=== PATIENT | female | born 1990 ===

== ENCOUNTER 2025-06-29 12:43 | Emergency (ER) | payer OTHER, SELFPAY ==
--- OUTSIDE RECORDS SUMMARY | 2012-06-24 04:30 | XMS_ITS | Continuity of Care Document ---
Author Organization [facility] Address [address] [facility] [address] [place] [address] Phone Care Team Providers Care Mirror Maker Name Role Phone Latoyailsamelissa LATRICIA Carmine Unavailable Unavailable Advance Directives Directive Yes / No Effective Date File Name No Information Encounters Encounter Description Practice Location Reason(s) For Visit Diagnoses Date Provider Providers Copied on Encounter [facility], [address] [facility] [address], [place], [address], [place] tel:[phone] No Information Kandice Lou. [facility] [place], [place], [id number], [place]. tel:[phone] Referring Provider: Jenn Calzada MD, [address], [address] . tel:[phone] Family History Family Member Type Diagnosis Age At Onset No Information Payers Payer name Insurance type Covered libertarian ID Authoriza tion(s) Medicaid [id number] Social History Type Description Quantity Date Captured Comments Sex Female Smoking Status No Information Chief Complaint And Reason For Visit No Information Reason For Referral Reason For Referral No Information History Of Present Illness Encounter Date Complaint History Of Prese nt Illness No Information Functional Status Date Functional Assessmen t No Information Instructions Date Instruction Additional Infor mation No Information Assessments Type Assessment Date No Information Patient Care Teams Name Effective Dates (start - stop) Status Members No Information
--- NOTE | ~2025-06-29 | CT_ITS ---
CLINICAL HISTORY: right sided headache, dizziness CT head without contrast Comparison: None provided Findings: No intra-axial mass, midline shift, hydrocephalus, or acute hemorrhage. No significant atrophy-like change or white matter disease. Mild mucosal thickening in the maxillary sinuses. The orbits are unremarkable. There is no acute fracture. IMPRESSION: 1. No acute intracranial findings. This document has been electronically signed by: Jose Donis MD on 06/29/2025 19:22:01
--- NOTE | ~2025-06-29 | CT_ITS ---
CLINICAL HISTORY: abdominal pain, nausea CT abdomen and pelvis with contrast Comparison: None provided Findings: No consolidation or effusion. Cholecystectomy. No biliary duct dilatation. Calcified granuloma in the right hepatic lobe. Liver is otherwise within limits. Spleen, pancreas, and adrenal glands are within normal limits. No hydronephrosis. Symmetric contrast enhancement of the kidneys. Nonobstructing calculus in the upper pole of the right kidney. No bowel obstruction, pneumoperitoneum, or pneumatosis. Corpus luteum in the left ovary. Uterus is within normal limits. Appendectomy. Urinary bladder is underdistended. Small amount of free fluid in the anterior pelvis. Trace free fluid in the posterior cul-de-sac. No acute fracture. IMPRESSION: Small amount of free fluid in the anterior pelvis, of uncertain etiology. No other acute findings. This document has been electronically signed by: Jose Donis MD on 06/29/2025 19:19:29
[2025-06-29 12:55] VITALS: BP 134/74; PULSE 82; RESP 16; TEMP 36.6; O2SAT 98; BMI 25.5
--- NOTE | 2025-06-29 12:59 | ED_ITS ---
HPI - General Adult General Chief complaint: Abdominal Pain Stated complaint: abd pain, headache Time Seen by Provider: 06/29/25 16:06 Source: patient Mode of arrival: ambulatory Limitations: no limitations History of Present Illness ED Provider: Alberta Tatum PA-C HPI narrative: Patient is a 34 year old assigned female at with a history of appendectomy and cholecystectomy presenting to the emergency department today with abdominal pain, nausea, vomiting, headache, and pain with urination. Patient states that over the last day she has had abdominal pain, nausea, vomiting, headache, and pain with urination. Patient denies any other complaints at this time. Onset (ago): day(s) (1) Related Data Allergies Allergy/AdvReac Type Severity Reaction Status Date / Time No Known Allergies Allergy Verified 06/29/25 12:56 Review of Systems 2 Constitutional: Constitutional: Reports as per HPI Eyes: Eyes: Reports as per HPI ENT: Reports as per HPI Cardiovascular: Cardiovascular: Reports as per HPI Respiratory: Respiratory: Reports as per HPI Gastrointestinal: Gastrointestinal: Reports as per HPI Genitourinary: Genitourinary: Reports as per HPI Musculoskeletal: Musculoskeletal: Reports as per HPI Integumentary/Breasts: Skin/Breast: Reports as per HPI Neurologic: Reports as per HPI Psychiatric: Psychiatric: Reports as per HPI Endocrine: Endocrine: Reports as per HPI Hematologic/Lymphatic: Hematologic/Lymphatic: Reports as per HPI Allergic/Immunologic: Allergic/Immunologic: Reports as per HPI [facility] Past Medical History Attestation statement: The following information was validated with the patient. Source: old records reviewed and nursing notes reviewed Physical Exam ED Vital Signs: Vital Signs - 24 hr 06/29/25 12:55 06/29/25 15:14 06/29/25 20:03 Temperature 97.8 F 97.7 F Pulse Rate 82 84 72 Respiratory Rate 16 18 20 Blood Pressure 134/74 109/58 L 107/73 Pulse Oximetry 98 99 97 Oxygen Delivery Method Room Air Room Air BMI result Body Mass Index 25.5 Const General: cooperative, no acute distress, alert and awake Nutritional Appearance: well nourished Orientation/consciousness: patient oriented x3 HENMT Head: Yes normal to inspection and Yes atraumatic Ears: hearing grossly normal bilaterally and external ears normal General nose exam: Normal external nose present, no nasal discharge noted and no epistaxis Face and sinus: Yes normal facial exam, No abrasion and No laceration Mouth: Normal oral and palatal mucosa present, no drooling and no muffled voice Eyes General: appearance normal, both eyes and all related structures Periorbital: periorbital findings normal Eyelids: Yes eyelids normal Conjunctivae: conjunctivae normal Pupils: Equal, round and reactive pupils present EOM: EOMs intact bilaterally Neck Neck: Yes normal visual inspection and Yes full ROM Resp Effort & Inspection: normal respiratory effort and able to speak in complete sentences GI Palpation (GI): Soft to palpation, not firm, nontender, no guarding and not rigid Neuro General: patient oriented x3, moves all extremities and CN's II-XI intact bilaterally Cranial nerves: Yes Equal, round and reactive pupils present Cognition (Neuro): normal cognition Extrem General: Yes normal to inspection, Yes full ROM and Yes capillary refill normal Psych Appearance: grossly normal Mental Status: mental status grossly normal Affect: normal affect Attitude: cooperative Thought process: Normal thought process present Thought content: Normal thought content present Insight: Good insight present (Psych) Course Course Course Narrative: RME: 34-year-old female presents to ED for generalized abdominal pain nausea vomiting with headache. Patient has history of cholecystectomy appendectomy. Labs ordered Medications Administered Discontinued Medications Generic Name Dose Route Start Last Admin Trade Name Freq PRN Reason Stop Dose Admin Sodium Chloride 1,000 mls @ 999 mls/hr 06/29/25 16:30 06/29/25 18:06 Ns IV 06/29/25 17:30 Infused .Q1H1M FRANNIE Infusion Iohexol 100 ml 06/29/25 18:05 06/29/25 18:05 Iohexol 350 Mg/Ml 100 Ml Infus..Btl IV 06/29/25 18:06 85 ml ONCE ONE Administration Ketorolac Tromethamine 15 mg 06/29/25 16:26 06/29/25 17:05 Ketorolac Tromethamine 15 Mg/Ml Vial IVPUSH 06/29/25 16:27 15 mg ONCE ONE Administration Morphine Sulfate 4 mg 06/29/25 16:26 06/29/25 17:06 Morphine Sulfate 2 Mg/Ml Cartridge IVPUSH 06/29/25 16:27 4 mg ONCE ONE Administration Protocol Ondansetron HCl 4 mg 06/29/25 16:27 06/29/25 17:05 Ondansetron Hcl 4 Mg/2 Ml Vial IVPUSH 06/29/25 16:28 4 mg ONCE ONE Administration Medical Decision Making Medical Decision Making [facility] Narrative: Patient is a 34 year old assigned female at with a history of appendectomy and cholecystectomy presenting to the emergency department today with abdominal pain, nausea, vomiting, headache, and pain with urination. Patient's physical exam was as noted in the physical exam portion of this note. Patient's blood work was unremarkable. Patient's urine showed trace leuks with 0-5 WBC, and trace bacteria. Not convincing for an acute UTI. Will await culture before treating. Patient's CT abd/pelvis showed no acute process but did show some trace free fluid in the pelvis. I suspect the patient had a small ovarian cyst that ruptured, causing the trace pelvic fluid. I explained my physical exam findings as well as all test results to the patient. I answered all questions asked by the patient. Patient received IV morphine, Zofran, and Toradol which, upon re-evaluation, she stated it helped her symptoms significantly. I stressed the importance of the patient taking her medication as directed (either prescribed or as the over the counter packaging recommends). I stressed the importance of the patient following up with her primary care provider. I stressed the importance of the patient returning to the emergency department immediately if her symptoms were to worsen or if she were to develop any dizziness, shortness of breath, difficulty breathing, chest pain, blurry vision, loss of vision, nausea, vomiting, abdominal pain, fever, chills, back pain, or any other complaints. Patient verbalized agreement and understanding with this treatment plan and discharge. Differential Diagnosis Differential Diagnoses: The differential diagnosis associated with the presentation includes Abdominal pain Ovarian cyst Admission/Observation Consideration of admission/observation: Escalation of care including admission/observation considered Patient would have been admitted to the hospital had her work up had any findings where hospital admission was appropriate and her clinical presentation warranted hospital admission. Lab Data [facility] Lab Attestation statement: I reviewed the patient's lab results. My interpretation of these results are in the [facility] Rationale portion of this note. 06/29/25 13:07 06/29/25 13:07 Labs: Lab Results 06/29/25 06/29/25 06/29/25 Range/Units 13:07 17:10 17:51 WBC 6.0 (4.8-10.8) X10*3/uL RBC 4.29 (4.20-5.50) X10*6/uL Hgb 12.3 (12.0-16.0) g/dl Hct 37.3 (37.0-47.0) % MCV 86.9 (80.0-98.0) fL MCH 28.7 (27.0-33.0) pg MCHC 33.0 (31.0-35.0) g/dl RDW 13.2 (11.0-16.0) % Plt Count 276 (160-400) X10*3/uL MPV 9.3 L (9.4-12.3) fL Immature Gran % (Auto) 0.3 (0.0-0.4) % Neut % (Auto) 66.1 (45-73) % Lymph % (Auto) 26.6 (20-40) % [place] % (Auto) 6.2 (2-11) % Eos % (Auto) 0.3 (0-4) % Baso % (Auto) 0.5 (0-2) % Lymph # (Auto) 1.6 (1.2-4.9) X10*3/uL [place] # (Auto) 0.4 (0.1-1.2) X10*3/uL Eos # (Auto) 0.0 (0.0-0.4) X10*3/uL Baso # (Auto) 0.0 (0.0-0.2) X10*3/uL Abs Immat Gran (auto) 0.02 (0.00-0.03) X10*3/uL Absolute Neuts (auto) 4.0 (2.0-8.3) x10*3/uL Absolute Nucleated RBC 0.000 (0.0-0.012) X10*3/uL Nucleated RBC % (auto) 0.0 (0.0-0.2) /100WBC Sodium 141 (135-145) mmol/L Potassium 3.7 (3.3-5.1) mmol/L Chloride 109 H (96-108) mmol/L Carbon Dioxide 27 (22-29) mmol/L Anion Gap 9 L (12-20) BUN 10 (9-16) mg/dL Creatinine 0.62 (0.5-1.4) mg/dL Estim Creat Clear Calc 122.0 Estimated GFR > 60 Random Glucose 80 (60-115) mg/dL Calcium 9.1 (8.4-10.2) mg/dL Total Bilirubin 0.4 (0.0-1.0) mg/dL AST 19 (5-31) U/L ALT 15 (0-31) U/L Alkaline Phosphatase 75 (39-117) U/L Total Protein 7.2 (6.5-8.0) g/dL Albumin 4.3 (3.5-5.0) g/dL Lipase 18 (8-78) U/L Beta HCG, Quant < 2 mIU/mL Urine Color Yellow Urine Appearance Clear Urine pH 6.5 (5.0-9.0) Ur Specific [place] 1.010 (1.005-1.025) Urine Protein Negative (Neg-Trace) mg/dL Urine Glucose (UA) Negative (Negative) mg/dL Urine Ketones Negative (Negative) mg/dL Urine Blood Negative (Negative) Urine Nitrite Negative (Negative) Ur Leukocyte Esterase Trace H (Negative) Urine RBC 0-2 (0-2) /HPF Urine WBC 0-5 (0-5) /HPF Ur Squamous Epith Cells 3-5 (0-2) /HPF Urine Bacteria Trace (None Seen) Hyaline Casts 0-2 (0-2) /LPF Chlam trachomat DNA PCR NOT DETECTED (Not Detect.) COVID-19 (AZEEM) Negative (Negative) COVID-19 Clin Com See Note Influenza Type A (CARLI) Negative (Negative) Influenza Type B (CARLI) Negative (Negative) Influenza A & B Note See Note N.gonorrhoeae DNA (PCR) NOT DETECTED (Not Detect.) S. pyogenes GrpA CARLI Negative (Negative) T. vaginalis (PCR) NOT DETECTED (Not Detect) Bact vaginosis (PCR) NEGATIVE (Negative) C. krusei/glabrata (PCR) DETECTED A (Not Detect) Keren group (PCR) NOT DETECTED (Not Detect) Independent Interpretation I performed an independent interpretation of an: CT Scan Interpretation: My interpretation is in agreement with the radiologist's impression of this imaging study. L Report Number: [id number]: Total DLP = 0.00 mGy-cm Reason for Exam: right sided headache, dizziness CLINICAL HISTORY: right sided headache, dizziness CT head without contrast Comparison: None provided Findings: No intra-axial mass, midline shift, hydrocephalus, or acute hemorrhage. No significant atrophy-like change or white matter disease. Mild mucosal thickening in the maxillary sinuses. The orbits are unremarkable. There is no acute fracture. IMPRESSION: 1. No acute intracranial findings. This document has been electronically signed by: Jose Donis MD on 06/29/2025 19:22:01 Dictated By: Jose Donis MD Signed By: Electronically signed by Jose Donis MD 06/29/251921 Reason for Exam: abdominal pain, nausea CLINICAL HISTORY: abdominal pain, nausea CT abdomen and pelvis with contrast Comparison: None provided Findings: No consolidation or effusion. Cholecystectomy. No biliary duct dilatation. Calcified granuloma in the right hepatic lobe. Liver is otherwise within limits. Spleen, pancreas, and adrenal glands are within normal limits. No hydronephrosis. Symmetric contrast enhancement of the kidneys. Nonobstructing calculus in the upper pole of the right kidney. No bowel obstruction, pneumoperitoneum, or pneumatosis. Corpus luteum in the left ovary. Uterus is within normal limits. Appendectomy. Urinary bladder is underdistended. Small amount of free fluid in the anterior pelvis. Trace free fluid in the posterior cul-de-sac. No acute fracture. IMPRESSION: Small amount of free fluid in the anterior pelvis, of uncertain etiology. No other acute findings. This document has been electronically signed by: Jose Donis MD on 06/29/2025 19:19:29 Dictated By: Jose Donis MD Signed By: Electronically signed by Jose Donis MD 06/29/251919 Radiology Impression Discussion of test interpretation with radiology: I have reviewed the radiologist's reading. Critical Care Time Critical Care Time Critical Care Time: Yes Total Critical Care Time: 36 Attestation: I spent 36 minutes of Critical Care Time with this patient. This does not include time spent on separately reported billable procedures. Discharge Plan Discharge Clinical Impression: Abdominal pain, Headache Patient Disposition: Home, Self-Care Instructions: Abdominal Pain (ED) Additional Instructions: Your work up today was reassuring there is no EMERGENT cause for your symptoms. Tus an?ipa de hoy me confirmaron que no hay sintia causa urgente de tus s?ntomas. Your CT scan of the abdomen/pelvis showed trace (small amount) of free fluid which I suspect is from a small ruptured ovarian cyst and that is why you were having pain. Tu tomograf?a computarizada de abdomen y pelvis mostr? sintia barbara?a cantidad de l?quido cole, que sospecho proviene de un barbara?o quiste ov?rico roto, y anu es la neftali?n por la que ten?as dolor. IF you are prescribed home medications and/or you are taking over the counter medications at home - it is very important you continue to do so as prescribed / directed unless told otherwise. SI le recetan medicamentos y/o est? tomando medicamentos de venta cole, es muy importante que contin?e haci?ndolo seg?n lo recetado/indicado a menos que le indiquen lo contrario. Follow up with your primary care provider. Return to the emergency department immediately if your symptoms worsen or if you develop any dizziness, shortness of breath, difficulty breathing, chest pain, blurry vision, loss of vision, nausea, vomiting, abdominal pain, fever, chills, back pain, or any other complaints. Terrie?seguimiento?con monson m?dico de atenci?n primaria. Acuda inmediatamente al servicio de urgencias si jeanette s?ntomas empeoran o si presenta falta de aliento, dificultad para respirar, dolor tor?cico, mareos, aturdimiento, dolor de espalda, dolor abdominal, fiebre, escalofr?os o cualquier otro s?ntoma. If you do not have a primary care provider - call any of the below numbers to establish and follow up with a primary care provider. Si no tiene un proveedor de atenci?n primaria, llame a cualquiera de los n?meros que aparecen a continuaci?n para establecer y hacer seguimiento con un proveedor de atenci?n primaria. [facility] Primary Care ([place]) [phone] [place] [address], [address] [facility] Primary Care ([address] [place]) [phone] [place] [address], [address] [facility], [address] [facility] Primary Care ([address] [place]) [phone] [place] [address], [address] [facility], [address] [facility] Primary Care ([place]) [phone] [place] [address] [address] [facility], [address] [facility] Family Medicine [phone] [place] [address], [address] Please see the information below about our Patient Portal. If you are not yet enrolled in the [facility] Patient Portal, you will receive an enrollment email invitation following your visit to any [facility] setting. You may also self-enroll in the Patient Portal by visiting our website: [email or web address] The following information is required to access the Patient Portal: - Your [facility] Medical Record Number - Your personal home email address (must match what is in your electronic medical record, Registration staff can assist with this) - Name - Date of Capabilities of the Patient Portal: - Message some providers - View upcoming appointments - Access your health summary, medical history, and visit history - View current conditions and allergies - View procedure and lab results - View your medications, including guidelines, side effects, and precautions - Complete pre-appointment questionnaires requested by your provider - Ready summary reports of your office visits and procedures To access the Patient Portal Mobile Toro, follow these directions: - Search RevertealPovio in the Toro Store or SeptRx Store - Download the Toro - Search for [facility] - Enter your login/password Portal del paciente Si usted no esta inscrito en el portal de pacientes de [facility] y [facility], recibira sintia invitacion de inscripcion despues de monson visita al [facility] o al [facility] via correo electronico. Tambien puede inscribirse voluntariamente en el portal de pacientes visitando nuestra pagina web: [email or web address] La siguiente informacion sera requerida para acceder al portal: - Monson devin de historia medica de [facility] - Monson direccion de correo electronico personal - Nombre - Fecha de nacimiento Capacidades: Las siguientes capacidades estan disponibles en el portal de pacientes: - Enviar mensajes a algunos doctores - Verificar proximas citas - Acceso a monson historial de dylon, registro medico e historial de visitas - Luisa las condiciones actuales y alergias luisa procedimientos y resultados del laboratorio - Luisa jeanette medicamentos, incluyendo las pautas - Efectos secundarios y precauciones - Completar o llenar formularios / cuestionarios de - Citas solicitadas por monson doctor - Leer los resumenes de reportes medicos de jeanette visitas y procedimientos Kedar acceder a la aplicacion movil: - Busque RevertealPovio en la Toro Store o SeptRx Store - Descargue la aplicacion - Busque [facility] - Ingrese monson nombre de usuario / Contrasena Stand Alone Forms: Work/School Release Interventions: ED Discharge Assessment Last Done: 06/29/25 20:03 Discharge Date/Time: 06/29/25 20:04 Print Language: Greek
[2025-06-29 13:13] LABS: MANUAL DIFF FLAG NO
[2025-06-29 13:14] LABS: Hematocrit 37.3 % (37.0-47.0); Hemoglobin 12.3 g/dl (12.0-16.0); Imm Gran Abs Auto 0.02 X10*3/uL (0.00-0.03); Imm Gran Pct Auto 0.3 % (0.0-0.4); Lymphocytes Absolute Auto 1.6 X10*3/uL (1.2-4.9); Mean Corpuscular HGB Conc 33.0 g/dl (31.0-35.0); Mean Corpuscular Hemoglobin 28.7 pg (27.0-33.0); Mean Corpuscular Volume 86.9 fL (80.0-98.0); NRBC Abs Auto 0.000 X10*3/uL (0.0-0.012); NRBC Pct Auto 0.0 /100WBC (0.0-0.2); Platelet Count 276 X10*3/uL (160-400); Red Blood Count 4.29 X10*6/uL (4.20-5.50); White Blood Count 6.0 X10*3/uL (4.8-10.8)
[2025-06-29 13:27] LABS: Alanine Aminotransferase 15 U/L (0-31); Albumin Level 4.3 g/dL (3.5-5.0); Alkaline Phosphatase 75 U/L (39-117); Anion Gap 9 (12-20); Aspartate Amino Transferase 19 U/L (5-31); Blood Urea Nitrogen 10 mg/dL (9-16); Calcium 9.1 mg/dL (8.4-10.2); Carbon Dioxide 27 mmol/L (22-29); Chloride 109 mmol/L (96-108); Creatinine Clr Calc Pharmacy 122.0; Estimated Glomerular Filt Rate > 60; Lipase 18 U/L (8-78); Potassium 3.7 mmol/L (3.3-5.1); Sodium 141 mmol/L (135-145); Total Protein 7.2 g/dL (6.5-8.0)
[2025-06-29 13:44] LABS: IDNOW Serial# 152EDE1D; IDNOW Serial# 16C4AD1C; Influenza B2 Negative (Negative)
[2025-06-29 13:45] LABS: COVID-19 Test Negative (Negative)
[2025-06-29 13:52] LABS: IDNOW Serial# 152EDE1D; Strep A Nucleic Acid Negative (Negative)
[2025-06-29 14:14] LABS: Appearance Urine Clear; Glucose Urine UA Negative (Negative); PH 6.5 (5.0-9.0); Specific Gravity - Urine 1.010 (1.005-1.025); UMIC TRIGGER UACC YES
[2025-06-29 15:14] VITALS: BP 109/58; PULSE 84; RESP 18; O2SAT 99
[2025-06-29] MEDS: iohexoL 350 MG/ML 100 ML INFUS..BTL IV (18:05)
--- OUTSIDE RECORDS SUMMARY | 2025-06-29 19:23 | XMS_ITS ---
Author Name [facility] Organization Unknown Care Team Organization Name Specialty Phone Email Start Date End Da te [facility] Deja Rojas Primary [facility] 11/19/2022 05/02/2024 [facility] Leilani Sargent Primary Care 07/22/2022
--- OUTSIDE RECORDS SUMMARY | 2025-06-29 19:23 | XMS_ITS | Clinical Summary ---
Author Organization [facility] Address [address] [place] [address] Phone Care Team Providers Care Shake Sawyer Name Role Phone Deja Pryor MD Primary Care Prov ider Allergies No known active allergies Medications albuterol HFA (PROAIR HFA ; PROVENTIL HFA ; VENTOLIN HFA) 90 mcg/actuation inhaler Inhale 2 Puffs into the lungs every 4 hours as needed for Cough or Wheezing. 08/25/2023 Active zolpidem (AMBIEN) 5 mg tablet TAKE 1 TABLET BY MOUTH EVERY NIGHT AT BEDTIME DIRECTED FOR SLEEP AT TEN PM Active ibuprofen (ADVIL,MOTRIN) 600 mg tablet Take 1 tablet (600 mg total) by mouth 3 (three) times a day. 08/04/2024 Active Active Problems Problem Noted Date Diagnosed Date Migraine without aura and wi th status migrainosus, not intractable 06/10/2019 Gastroesophageal reflux disease 10/01/2016 Encounters Date Type Department Care Team Description 04/07/2025 8:21 PM EDT - 04/07/2025 9:53 PM EDT Emergency [facility] Emergency [address] [place] [address] Osito Kevin MD Pain and swelling of left lower leg (Primary Dx) Discharge Disposition: Home or Self Care from Last 3 Months Immunizations Immunization Administration Dates Next Due Influenza, Unspecified 05/15/2016 Moderna SARS-CoV-2 COVID-19, mRNA, LNP-S, preservative free 09/16/2021,03/14/2021,02/14/2021 PPD Test 01/25/2019 Tdap Tetanus diptheria acell ular pertussis (Boostrix; Adacel) 7yo and older 04/30/2017 Surgical History Surgery Date Site/Laterality Comments CHOLECYSTECTOMY PROCEDURE: HISTORICAL CHOLECYSTECTOMY APPENDECTOMY PROCEDURE: HISTORICAL APPENDECTOMY TUBAL LIGATION 2012 PROCEDURE: HISTORICAL TUBAL LIGATION Medical History Medical History Date Comments Gastroesophageal reflux disease 10/01/2016 DX:Gastroesophageal reflux disease Migraine without aura and wi th status migrainosus, not intractable 06/10/2019 DX:Migraine without aura and with status migrainosus, not intractable Family History Medical History Relation Name Comments Breast cancer Aunt maternal mastectomy No Known Problems Brother x[address] No Known Problems Father Colon cancer Father's side Hypertension Mother No Known Problems Sister x5 No Known Problems Son 1 No Known Problems Son 2 Relation Name Status Comments Aunt maternal Alive Brother x4 Alive Father Alive Father's side Mother Alive Sister x5 Alive Son 1 Alive Son 2 Alive Social History Tobacco Use Types Packs/Day Years Used Date Smoking Tobacco: Never Smokeless Tobacco: Never Alcohol Use Standard Drinks/Week Comments Yes 0 (1 standard drink = 0.6 oz pur e alcohol) Comments Unknown Sex and Gender Information Value Date Recorded Sex Assigned at Not on file Legal Sex Female 3:19 AM EST Gender Identity Not on file Sexual Orientation Not on file Obstetrics History Para Term AB IAB SAB Ectopic Multiple Livin g Live Births 2 2 2 2 2 Date Outcome GA Total Labor Labor/2nd/3rd Weight Sex Type Anes PTL Luzma A1 A5 Name Clin 2009 Term M Vag-S pont Living 2011 Term M Vag-S pont Living Last Filed Vital Signs Vital Sign Reading Time Taken Comments Blood Pressure 108/87 04/07/2025 7:40 PM EDT Pulse 88 04/07/2025 7:40 PM EDT Temperature 36.8 C (98.2 F) 04/07/2025 7:40 PM EDT Respiratory Rate 18 04/07/2025 7:40 PM EDT Oxygen Saturation 99% 04/07/2025 7:40 PM EDT Inhaled Oxygen Concentration - - Weight 72.6 kg (160 lb) 04/07/2025 7:40 PM EDT Height 170.2 cm (5' 7 ) 04/07/2025 7:40 PM EDT Body Mass Index 25.06 04/07/2025 7:40 PM EDT Plan of Treatment Health Maintenance Due Date Last Done Comments Hepatitis B Vaccines (1 of 3 - 19+ 3-dose series) 2007 HPV Vaccines (1 - 3-dose SCD M series) 2015 Social Influencers of Health Screening 08/17/2022 Depression Screening 09/14/2024 08/25/2023 COVID-19 Vaccine (4 - 2024-2 6 season) 2025 09/16/2021, 03/14/2021, 02/14/2021 Influenza Vaccine (#1) 2025 6, 06/24/2011 DTaP,Tdap,and Td Vaccines (3 - Td or Tdap) 04/30/2027 04/30/2017, 11/23/2011 Cervical Cancer Screening: HPV 01/10/2028 01/09/2023 Cholesterol Screening (Lipid Panel) 08/25/2028 08/25/2023 RSV Immunization Adult Patients (1 - 1-dose 75+ series) 2063 HIV Screening Completed 08/25/2023 Hepatitis C Screening Completed 08/25/2023 HIB Vaccines Aged Out No longer eligi ble based on patient's age to complete this topic Hepatitis A Vaccines Aged Out No long er eligible based on patient's age to complete this topic IPV Vaccines Aged Out No longer eligi ble based on patient's age to complete this topic MMR Vaccines Aged Out No longer eligi ble based on patient's age to complete this topic Meningococcal ACWY Vaccine Aged Out N o longer eligible based on patient's age to complete this topic Meningococcal B Vaccine Aged Out No l onger eligible based on patient's age to complete this topic Pneumococcal Vaccine: Pediatrics (0 to 5 Years) and At-Risk Patients (6 to 49 Years) Aged Out No longer eligible b ased on patient's age to complete this topic RSV Immunization Patients Under 20 months Aged Out No longer eligible b ased on patient's age to complete this topic Varicella Vaccines Aged Out No longer eligible based on patient's age to complete this topic Procedures Procedure Name Priority Date/Time Associated Diagnosis Comments VAS US DUPLEX LOWER EXT VENOUS LEFT STAT 04/07/2025 9:28 PM EDT Pain and swelling of left lower leg DEPRESSION SCREENING Routine 08/25/2023 HEPATITIS C SCREENING Routine 08/25/2023 HIV SCREENING Routine 08/25/2023 LIPID PANEL Routine 08/25/2023 HM HPV Routine 01/09/2023 from Last 3 Months or Most Recently Relevant to Health Maintenance Results * Vascular US Duplex Lower Extremity Venous Left (04/07/2025 9:28 PM EDT) Anatomical Region Laterality Modality Vascular, Abdomen Ultrasound 04/08/2025 3:48 AM EDT Impressions 04/08/2025 3:48 AM EDT No deep vein thrombosis identified in the left lower extremity veins. -------- FINAL REPORT -------- Dictated By: Arielle Hood Dictated Date: 04/08/2025 03:48 ET Assigned Physician: Arielle Hood Reviewed and Electronically Signed By: Arielle Hood Signed Date: 04/08/2025 03:48 ET Workstation ID: [id number] Transcribed By: Self Edit Transcribed Date: 04/08/2025 03:48 ET Narrative 04/08/2025 3:48 AM EDT INDICATION: edema COMPARISON: December 2022 TECHNIQUE: Ultrasound of the left lower extremity veins is performed using color-flow Doppler, graded compression with B mode Doppler with spectral analysis FINDINGS: The common femoral, superficial femoral and popliteal veins compress normally throughout their length. Normal response to distal augmentation is seen with calf compression. Included calf vessels are patent on color Doppler. Procedure Note Arielle Hood MD - 04/08/2025 INDICATION: edema COMPARISON: December 2022 TECHNIQUE: Ultrasound of the left lower extremity veins is performedusing color- flow Doppler, graded compression with B mode Doppler withspectral analysis FINDINGS: The common femoral, superficial femoral and popliteal veinscompress normally throughout their length. Normal response to distalaugmentation is seen with calf compression. Included calf vessels arepatent on color Doppler. IMPRESSION: No deep vein thrombosis identified in the left lower extremity veins. -------- FINAL REPORT -------- Dictated By: Arielle Hood Dictated Date: 04/08/2025 03:48 ET Assigned Physician: Arielle Hood Reviewed and Electronically Signed By: Arielle Hood Signed Date: 04/08/2025 03:48 ET Workstation ID: [id number] Transcribed By: Self Edit Transcribed Date: 04/08/2025 03:48 ET Result [facility] Osito Kevin MD CV VASCULAR PROCEDURES Final Re sult * Depression Screening (08/25/2023) [facility] Depression Screening ABSTRACTED Result [facility] MAINTENANCE Final Result * HIV Screening (08/25/2023) [facility] HIV Screening ABSTRACTED Result [facility] MAINTENANCE Final Result * Hepatitis C Screening (08/25/2023) [facility] Hepatitis C Screening ABSTRACTED Result [facility] MAINTENANCE Final Result * Lipid panel (08/25/2023) [facility] LDL/HDL Ratio 3 0 - 4 Triglycerides 70 0 - 150 mg/dL Cholesterol 141 0 - 200 mg/dL HDL 46 >=40 mg/dL LDL Cholesterol 81 0 - 100 mg/dL Blood Venous blood specimen / Unknown Result [facility] Provider LAB BLOOD ORDERABLES Nahomy l Result * Cervical Cancer Screening: HPV (01/09/2023) [facility] Cervical Cancer Screening: HPV NEGATIVE, ABSTRACTED Result [facility] HEALTH MAINTENANCE Final Result from Last 3 Months or Most Recently Relevant to Health Maintenance Insurance [facility] MEDICAID ADVANTAGE Care Teams Shake Sawyer Relationship Specialty Start Date End Date Deja Pryor MD [address] [place] [phone] PCP - General Internal Medicine 04/15/22
[2025-06-29 20:03] VITALS: BP 107/73; PULSE 72; RESP 20; TEMP 36.5; O2SAT 97
[2025-06-30 05:03] LABS: Bacterial Vaginosis PCR NEGATIVE (Negative); Candida Group PCR NOT DETECTED (Not Detect); Candida glab krusei PCR DETECTED (Not Detect); Trichomonas vaginalis PCR NOT DETECTED (Not Detect)
[2025-06-30 05:35] LABS: CT PCR NOT DETECTED (Not Detect.); NG PCR NOT DETECTED (Not Detect.)
== END 2025-06-29 20:04 | disposition home or self-care (01) ==
PROVIDERS: Physician Assistant; Physician Assistant Medical; Emergency Provider Emergency Medicine
DX: R10.9 Unspecified abdominal pain (principal); R51.9 Headache, unspecified; R11.10 Vomiting, unspecified; R30.0 Dysuria; Z87.19 Personal history of other diseases of the digestive system
CPT/HCPCS: 36415; 70450; 74177; 80053; 81001; 81003; 81515; 83690; 84702; 85025; 87491; 87502; 87591; 87635; 87651; 96361; 96374; 96375; 99284; 99285; J1885; J2270; J2405; Q9967

== ENCOUNTER → 2025-06-29 16:27 | Outpatient (BNV) | payer OTHER, SELFPAY | PROVIDERS: Emergency Provider Emergency Medicine; Visit Provider Radiology Diagnostic Radiology | DX: R10.9 Unspecified abdominal pain (principal); R11.0 Nausea; R51.9 Headache, unspecified; R42 Dizziness and giddiness | CPT/HCPCS: 70450; 74177 ==